=== PATIENT | female | born 1995 | race Caucasian/White ===

== ENCOUNTER 2017-03-13 19:41 | Emergency (ER) | payer OTHER ==
[~2017-03-13] VITALS: Ht 162.6 cm; Wt 99.6 kg
[~2017-03-13 19:41] MED LIST: FLEXERIL10 MG PO; MOTRIN800 MG PO; MYCELEX10 MG PO; Motrin PO; TOPIRAMATE100 MG PO
[2017-03-13 20:07] LABS: HEMATOCRIT 40.9 % (36.0-46.0); MCH 29.5 PG (29.0-34.0); MCHC 33.3 G/DL (30.0-36.0); MCV 88.7 FL (83-99); MEAN PLAT.VOLUME 10.2 uM^3 (9.5-12.4); PLATELET COUNT 331 K/uL (156-360); RBC DIS.WIDTH-CV 12.3 % (11.8-14.6); RBC DIS.WIDTH-SD 39.5 % (39-53); RED BLOOD COUNT 4.61 M/uL (3.80-5.20); WHITE BLOOD COUNT 10.7 K/uL (4.1-10.2)
[2017-03-13 20:17] LABS: CHLORIDE 107 mEq/L (99-109); POTASSIUM 3.5 mEq/L (3.7-5.4); SODIUM 138 mEq/L (136-147)
[2017-03-13 20:18] LABS: GLUCOSE 97 mg/dL (70-99)
[2017-03-13 20:20] LABS: ANION GAP 9 MEQ/L (2-14)
[2017-03-13] MEDS ORDERED: SERTRALINE HCL50 MG PO (20:21)
[2017-03-13] MEDS ORDERED: ZOLOFT50 MG PO (20:21)
[2017-03-13 20:22] LABS: GFR ESTIMATE (CALCULATED) > 59 mL/min/
[2017-03-13 20:23] LABS: UREA NITROGEN (BUN) 17 mg/dL (9-23)
[2017-03-13 20:27] LABS: TROP-I INTERPRETATION NEGATIVE; TROPONIN-I < 0.01 ng/mL (0.0-0.30)
[2017-03-13] MEDS ORDERED: NAPROXEN500 MG PO (22:38)
[2017-03-13 22:55] VITALS: BP 133/73
== END 2017-03-13 22:56 | disposition home or self-care (01) ==
LOC: EME 19:41
DX: R07.89 Other chest pain (principal); G43.909 Migraine, unspecified, not intractable, without status migrainosus
CPT/HCPCS: 71020; 71275; 80048; 84484; 85027; 85379; 93005; 99281; 99285